=== PATIENT | male | born 1960 | race Caucasian/White ===

== ENCOUNTER → 2018-04-14 | Outpatient (CLI) | payer BC | END | disposition home or self-care (01) | LOC: CFH 09:36 | PROVIDERS: ATTEND Orthopaedic Surgery | DX: R22.32 Localized swelling, mass and lump, left upper limb (principal) ==

== ENCOUNTER 2018-04-27 13:01 | Outpatient (CLI) | payer BC ==
[2018-04-27] MEDS ORDERED: NONE PER PT (13:23)
== END 2018-05-04 13:02 | disposition home or self-care (01) ==
LOC: STAR 13:01
PROVIDERS: ATTEND Orthopaedic Surgery
DX: Z02.9 Encounter for administrative examinations, unspecified (principal)

== ENCOUNTER 2018-05-01 06:15 | Day surgery (SDC) | payer BC ==
[2018-04-27 13:20] VITALS: BP 131/83
[~2018-05-01] VITALS: Ht 182.9 cm; Wt 110.0 kg
[~2018-05-01 06:15] MED LIST: NONE PER PT
[2018-05-01] MEDS ORDERED: LIDOCAINE 1%-EPI 1:100K, 30ML ONE (06:28)
[2018-05-01] MEDS ORDERED: BUPIVACAINE/PF-EPI 0.5% 1:200K ONE (06:28)
[2018-05-01] MEDS ORDERED: LACTATED RINGERS 1,000 ML IV SCH (06:39)
[2018-05-01] MEDS ORDERED: ACETAMINOPHEN 500 MG TABLET PO ONE (07:00)
[2018-05-01] MEDS ORDERED: GABAPENTIN 300 MG CAPSULE PO ONE (07:00)
[2018-05-01] MEDS ORDERED: FENTANYL PF 250 MCG/5ML ONE (07:03)
[2018-05-01] MEDS ORDERED: MIDAZOLAM 1 MG/ML, 2ML ONE (07:03)
[2018-05-01] MEDS ORDERED: PROPOFOL 10 MG/ML, 20ML ONE ×2 (07:04→07:05)
[2018-05-01] MEDS ORDERED: GLYCOPYRROLATE 0.2MG/1ML, 5ML ONE (07:05)
[2018-05-01] MEDS ORDERED: NEOSTIGMINE 1 MG/ML, 10ML ONE (07:05)
[2018-05-01] MEDS ORDERED: ROCURONIUM 10MG/ML,5ML ONE (07:05)
[2018-05-01] MEDS ORDERED: CEFAZOLIN 1,000 MG ONE (07:05)
[2018-05-01] MEDS ORDERED: MORPHINE SULFATE 4 MG/ML, 1ML IVPush PRN (08:00)
[2018-05-01] MEDS ORDERED: hydrALAzine 20 MG/ML, 1ML IV PRN (08:00)
[2018-05-01] MEDS ORDERED: PROMETHAZINE 25 MG/ML, 1ML IM PRN ×2 (08:00)
[2018-05-01] MEDS ORDERED: PROMETHAZINE 25 MG/ML, 1ML IV PRN (08:00)
[2018-05-01] MEDS ORDERED: PROMETHAZINE 25 MG SUPP PR PRN (08:00)
[2018-05-01] MEDS ORDERED: FENTANYL PF 100 MCG/2ML IV PRN (08:00)
[2018-05-01] MEDS ORDERED: LABETALOL 5MG/ML, 20ML IV PRN (08:00)
[2018-05-01] MEDS ORDERED: HYDROmorphone 1 MG/ML, 1ML IV PRN (08:00)
[2018-05-01] MEDS ORDERED: OXYcodone 5 MG/5 ML ORAL.SOL UDC PO PRN (08:00)
[2018-05-01] MEDS ORDERED: ONDANSETRON ODT 8 MG PO PRN (08:00)
[2018-05-01] MEDS ORDERED: MEPERIDINE/PF 25MG/0.5ML IVPush PRN (08:00)
[2018-05-01] MEDS ORDERED: PROMETHAZINE 12.5 MG SUPP PR PRN (08:00)
[2018-05-01] MEDS ORDERED: ONDANSETRON 2MG/ML, 2ML IV PRN (08:00)
== END 2018-05-01 11:45 | disposition home or self-care (01) ==
LOC: OUT 06:15
PROVIDERS: ATTEND Orthopaedic Surgery
DX: M75.112 Incomplete rotator cuff tear or rupture of left shoulder, not specified as traumatic (principal); M19.012 Primary osteoarthritis, left shoulder; M24.112 Other articular cartilage disorders, left shoulder; M65.812 Other synovitis and tenosynovitis, left shoulder; M75.42 Impingement syndrome of left shoulder; M66.322 Spontaneous rupture of flexor tendons, left upper arm
CPT/HCPCS: 29823; 29824; 29826; 29827; 29828; 64415; C1713; J0690; J2250; J2704; J2710; J3010; J3490